=== PATIENT | female | born 1955 | race Caucasian/White ===

== ENCOUNTER 2019-12-21 11:58 | Observation (INO) | payer OTHER ==
[2019-12-17 11:28] LABS: HEMATOCRIT 31.8 % (36.0-47.0); HEMOGLOBIN 10.7 g/dL (12.0-15.5); MEAN CORPUSCULAR HEMOGLOBIN 25.9 pg (27.0-33.4); MEAN CORPUSCULAR HGB CONC 33.8 g/dL (32.0-36.0); MEAN CORPUSCULAR VOLUME 77 fl (80-97); PLATELET COUNT 426 10^3/uL (150-450); RED BLOOD COUNT 4.13 10^6/uL (3.72-5.28); RED CELL DISTRIBUTION WIDTH 18.3 % (11.5-14.0); WHITE BLOOD COUNT 6.7 10^3/uL (4.0-10.5)
[2019-12-17 11:40] LABS: APPEARANCE,URINE CLEAR; BILIRUBIN,URINE NEGATIVE (NEGATIVE); COLOR,URINE YELLOW; GLUCOSE, URINE NEGATIVE (NEGATIVE); KETONES,URINE NEGATIVE (NEGATIVE); LEUKOCYTE ESTERASE,URINE NEGATIVE (NEGATIVE); NITRITE,URINE NEGATIVE (NEGATIVE); PROTEIN,URINE NEGATIVE (NEGATIVE); URINE SPECIFIC GRAVITY 1.006; UROBILINOGEN,URINE NEGATIVE mg/dL (<2.0)
[2019-12-17 11:53] LABS: ADD MANUAL MICROSCOPIC YES; RBC,URINE 0-1 /HPF; WBC,URINE NONE SEEN /HPF
[2019-12-17 12:08] LABS: ANION GAP 10 (5-19); BLOOD UREA NITROGEN 6 mg/dL (7-20); CALCIUM 9.9 mg/dL (8.4-10.2); CARBON DIOXIDE 25 mmol/L (22-30); CHLORIDE 98 mmol/L (98-107); GLUCOSE 98 mg/dL (75-110); POTASSIUM 4.8 mmol/L (3.6-5.0)
--- NOTE | 2019-12-17 12:37 | RADIOLOGY REPORT (SQ) ---
EXAM DESCRIPTION: CHEST PA/LATERAL IMAGES COMPLETED DATE/TIME: 12/17/2019 12:07 pm REASON FOR STUDY: PRE-OP COMPARISON: None. EXAM PARAMETERS: NUMBER OF VIEWS: two views TECHNIQUE: Digital Frontal and Lateral radiographic views of the chest acquired. RADIATION DOSE: NA LIMITATIONS: none FINDINGS: LUNGS AND PLEURA: No infiltrate, effusion, or mass. There appears to be limited atelectas is at the left heart border. MEDIASTINUM AND HILAR STRUCTURES: No masses or contour abnormalities. HEART AND VASCULAR STRUCTURES: Heart normal size. No evidence for failure. BONES: No acute findings. HARDWARE: None in the chest. OTHER: No other significant finding. IMPRESSION: Limited atelectasis. No acute cardiopulmonary finding. TECHNICAL DOCUMENTATION: JOB ID: [id number] 2010 [employer]- All Rights Reserved Reading location - IP/workstation name: [email or web address]
--- NOTE | 2019-12-18 11:18 | EKG REPORT ---
SEVERITY:- NORMAL ECG - SINUS RHYTHM : Confirmed by: Natasha Kohler MD 18-Dec-2019 11:17:33
[~2019-12-21 11:58] MED LIST: CEFAZOLIN 2 GM/D5W RTU 2 GM/50 ML RTUPB IV PRN; FENTANYL CITRATE INJ/PF 100 MCG/2 ML AMPUL ONE; MIDAZOLAM 2 MG/2 ML INJ ONE; ONDANSETRON HCL INJ/PF 4 MG/2 ML SDV ONE; PROPOFOL INJ 200 MG/20 ML VIAL IV ONE; ROPIVACAINE HCL 0.5% INJ/PF (5 MG/1 ML) 30 ML SDV ONE; SUCCINYLCHOLINE CHLORIDE INJ 200 MG/10 ML VIAL ONE
[2019-12-21] MEDS ORDERED: CEFAZOLIN 2 GM/D5W RTU 2 GM/50 ML RTUPB IV ONE (12:06)
[2019-12-21] MEDS ORDERED: FENTANYL CITRATE INJ/PF 100 MCG/2 ML AMPUL ONE (14:02)
[2019-12-21] MEDS ORDERED: MIDAZOLAM 2 MG/2 ML INJ ONE (14:02)
--- NOTE | 2019-12-21 16:21 | Operative Report ---
Operative Report DATE OF SURGERY: 12/21/19 PREOPERATIVE DIAGNOSIS: Left posttraumatic ankle arthrosis OPERATION: Left ankle arthrodesis SURGEON: SLOANE DAVIS ANESTHESIA: GA TISSUE REMOVED OR ALTERED: Resected bone used as bone graft ESTIMATED BLOOD LOSS: 100 PROCEDURE: With with the patient supine on the operative table the left lower extremities prepped and draped in a sterile fashion. The limb is elevated for exsanguination tourniquet applied 250 torr. A longitudinal incision is made over the anterior aspect of the ankle in line with the anterior tibial tendon sheath. Upon transitioning through the dermis a fair amount of bleeding is encountered. The tourniquet is deflated and the bleeding is significantly abated. The dissection continues through the anterior tibial tendon sheath to avoid the neurovascular bundle and onto the anterior surface of the tibia and the dorsal surface of the talus. These were posed and osteophytes removed. The articular surface of the talus resected using oscillating saw. The articular surface of the tibia is resected using an oscillating saw. The joint is reapproximated and a pin through the plantar surface the foot up into the tibia is used to hold the reduction with neutral varus valgus of the hindfoot and neutral plantar dorsiflexion. Next an Arthrex plate is applied to the anterior surfaces of the tibia and the dorsal surface of the talus. 4 screws were anchored into the talus. Sected bone is morselized and placed into the tibiotalar joint. A compression screw was now used to an oblong hole in the p late to close down the joint space. This occurs very nicely. The remaining holes on the anterior surface of the tibia were then filled with the appropriate screws. The wound is irrigated with bulb lavage and closed using rapid Vicryl followed by nylon. A sterile compressive dressing and posterior plaster splint were applied and the patient was returned to PACU in satisfactory condition.
[2019-12-21] MEDS ORDERED: PROMETHAZINE HCL INJ 25 MG/1 ML VIAL IV PRN ×2 (16:32)
[2019-12-21] MEDS ORDERED: FENTANYL CITRATE INJ/PF 100 MCG/2 ML AMPUL IV PRN ×3 (16:32)
[2019-12-21] MEDS ORDERED: DIPHENHYDRAMINE HCL 50 MG/ML VIAL IV PRN (16:32)
[2019-12-21] MEDS ORDERED: MEPERIDINE HCL/PF INJ 25 MG/1 ML DISP.SYRIN IV PRN (16:32)
[2019-12-21] MEDS ORDERED: RINGERS SOLUTION,LACTATED 1,000 ML IV PRN (16:33)
[2019-12-21] MEDS ORDERED: ACETAMINOPHEN 325 MG TABLET PO PRN (16:37)
[2019-12-21] MEDS ORDERED: ONDANSETRON 4 MG TAB.RAPDIS PO PRN (16:38)
[2019-12-21] MEDS ORDERED: KETOROLAC TROMETHAMINE INJ/PF 30 MG/1 ML SDV ONE (17:06)
[2019-12-21] MEDS ORDERED: MORPHINE SULFATE 10 MG/ML INJ ONE (17:13)
[2019-12-21] MEDS: MORPHINE SULFATE 10 MG/ML INJ IV PRN ×2 (17:15→17:20)
[2019-12-21] MEDS ORDERED: EPHEDRINE SULFATE INJ 50 MG/1 ML AMPULE ONE (18:18)
--- NOTE | 2019-12-21 18:50 | RADIOLOGY REPORT (SQ) ---
EXAM DESCRIPTION: NO CHG FLUORO; ANKLE LEFT AP/LATERAL IMAGES COMPLETED DATE/TIME: 12/21/2019 6:19 pm REASON FOR STUDY: ORIF LT ANKLE COMPARISON: None. FLUOROSCOPY TIME: 0.4 minutes 2 Images saved to PACS LIMITATIONS: None. PROCEDURE: ORIF left ankle. FINDINGS: Images from fluoro document the procedure. IMPRESSION: ORIF left ankle. Refer to operative note for further information. COMMENT: PQRS 6045F: Fluoroscopy time of the procedure is documented in the report. TECHNICAL DOCUMENTATION: JOB ID: [id number] 2010 [employer]- All Rights Reserved Reading location - IP/workstation name: [email or web address]
--- NOTE | 2019-12-21 18:50 | RADIOLOGY REPORT (SQ) ---
EXAM DESCRIPTION: NO CHG FLUORO; ANKLE LEFT AP/LATERAL IMAGES COMPLETED DATE/TIME: 12/21/2019 6:19 pm REASON FOR STUDY: ORIF LT ANKLE COMPARISON: None. FLUOROSCOPY TIME: 0.4 minutes 2 Images saved to PACS LIMITATIONS: None. PROCEDURE: ORIF left ankle. FINDINGS: Images from fluoro document the procedure. IMPRESSION: ORIF left ankle. Refer to operative note for further information. COMMENT: PQRS 6045F: Fluoroscopy time of the procedure is documented in the report. TECHNICAL DOCUMENTATION: JOB ID: [id number] 2010 [employer]- All Rights Reserved Reading location - IP/workstation name: [email or web address]
[2019-12-21] MEDS: CEFAZOLIN SODIUM 2 GM in DEXTROSE 5%-WATER 100 ML IV SCH (21:58)
[2019-12-22] MEDS: IBUPROFEN 800 MG in NORMAL SALINE 250 ML IV SCH ×2 (00:33→06:37)
[2019-12-22] MEDS: OXYCODONE HCL IR 5 MG TABLET PO PRN ×2 (01:43→08:13)
[2019-12-22] MEDS: CEFAZOLIN SODIUM 2 GM in DEXTROSE 5%-WATER 100 ML IV SCH (05:02)
[2019-12-22] MEDS ORDERED: RINGERS SOLUTION,LACTATED 500 ML IV PRN (05:55)
--- NOTE | 2019-12-22 06:31 | Discharge Summary ---
Discharge Summary (SDC) - Discharge Final Diagnosis: Posttraumatic arthrosis left ankle Date of Surgery: 12/21/19 Discharge Date: 12/22/19 Condition: Good Treatment or Instructions: Touchdown weightbearing restriction left lower extremity Referrals: SLOANE DAVIS MD [ACTIVE STAFF] - 01/05/20 9:30 am Discharge Diet: Regular Respiratory Treatments at Home: Deep Breathing/Coughing Discharge Activity: Balance Activity w/Rest, No tub bath Home Care Assistance: None Needed Report the Following to Your Physician Immediately: Shortness of Breath, Fever over 101 Degrees, Drainage-Foul Smelling
[2019-12-22] MEDS ORDERED: ASPIRIN 81 MG TABLET, ENT COATED PO SCH (10:00)
[2019-12-22 11:07] VITALS: BP 115/57
== END 2019-12-22 11:42 | disposition home or self-care (01) ==
LOC: OROUT 11:58 → 4W 17:53 → INOR 18:17 → OROUT 12-22 11:42 → 4W 12-22 11:42
PROVIDERS: ADMIT Orthopaedic Surgery; ATTEND Orthopaedic Surgery
DX: M19.172 Post-traumatic osteoarthritis, left ankle and foot (principal); I10 Essential (primary) hypertension; K21.9 Gastro-esophageal reflux disease without esophagitis; E66.3 Overweight; K44.9 Diaphragmatic hernia without obstruction or gangrene; Z03.818 Encounter for observation for suspected exposure to other biological agents ruled out; Z79.899 Other long term (current) drug therapy; Z79.1 Long term (current) use of non-steroidal anti-inflammatories (NSAID); Z98.1 Arthrodesis status
CPT/HCPCS: 27870; 93005; 36415; 85027; 87635; 80048; 81001; 73600; 71046; 93010; 97110; 97116; 97162; 01480; G0378 ×2; C1713 ×6; J2795; J2250; J0690 ×3; J3490; J3010; J1885; J2270; J0330; J2405; J7060 ×2; J7050 ×2; J7120; J2704; J1741 ×2; C9803

== ENCOUNTER 2020-04-03 11:50 | Emergency (ER) | payer OTHER ==
[2020-04-03 12:55] LABS: APPEARANCE,URINE CLEAR; BILIRUBIN,URINE NEGATIVE (NEGATIVE); COLOR,URINE AMBER; GLUCOSE, URINE NEGATIVE (NEGATIVE); KETONES,URINE NEGATIVE (NEGATIVE); LEUKOCYTE ESTERASE,URINE NEGATIVE (NEGATIVE); NITRITE,URINE POSITIVE (NEGATIVE); PROTEIN,URINE NEGATIVE (NEGATIVE); URINE SPECIFIC GRAVITY 1.005
--- NOTE | 2020-04-03 13:00 | ER Document Report ---
ED General - General Chief Complaint: Urinary Problem Stated Complaint: PAINFUL URINATION,ABDOMINAL PAIN Time Seen by Provider: 04/03/20 12:28 Primary Care Provider: ALIRIO CARABALLO MD [Primary Care Provider] - Follow up in 3-5 days Notes: Patient is a 65-year-old female presents emergency department with a chief c omplaint of dysuria and bladder fullness. Patient states that about a month ago, she was diagnosed with a urinary tract infection was started on ciprofloxacin. States that she took all her medications as prescribed. Went back to her primary care provider and ended up having a second course of cip rofloxacin, which she states is still did not help her. She did take abtn-aao-crmyxzs Pyridium to help with her symptoms. Patient also states that she has had a cough and congestion over the past 5 days. Patient states that she used to smoke a lot, but continues to smoke just a little bit. Patient states that she has felt "wheezy." - Related Data Allergies/Adverse Reactions: codeine Allergy (Unknown, Verified 04/03/20 12:29) Hives iv dye Allergy (Uncoded 12/21/19 08:08) Home Medications: Lisinopril-HCTZ 20-12.5, Celebrex 200, Nexium 40, Paxil 40, Trazadone PRN Past Medical History - General Information source: Patient - Social History Smoking Status: Current Some Day Smoker Frequency of alcohol use: Occasional Drug Abuse: None Family History: Reviewed & Not Pertinent - Past Medical History Cardiac Medical History: Reports: Hx Hypercholesterolemia, Hx Hypertension Denies: Hx Coronary Artery Disease, Hx Heart Attack Pulmonary Medical History: Denies: Hx Asthma, Hx Bronchitis, Hx COPD, Hx Pneumonia Neurological Medical History: Denies: Hx Cerebrovascular Accident, Hx Seizures GI Medical History: Reports: Hx Gastroesophageal Reflux Disease, Hx Hiatal Hernia Musculoskeletal Medical History: Reports Hx Arthritis Psychiatric Medical History: Reports: Hx Depression Past Surgical History: Reports: Hx Breast Surgery - reduction, Hx Hysterectomy, Hx Orthopedic Surgery - left ankle/back - Immunizations Hx Diphtheria, Pertussis, Tetanus Vaccination: No Review of Systems - Review of Systems Notes: REVIEW OF SYSTEMS: CONSTITUTIONAL : Denies recent illness. Denies recent unintentional weight loss. Denies fever, chills, or sweats. EENT: Denies eye, ear, throat, or mouth pain, discharge, or symptoms. Denies nasal or sinus congestion. CARDIOVASCULAR: Denies chest pain. RESPIRATORY: See HPI. GASTROINTESTINAL: Denies nausea, vomiting, and diarrhea. Denies abdominal pain. Denies constipation. GENITOURINARY: See HPI. MUSCULOSKELETAL: Denies neck and back pain. Denies joint pain or swelling. SKIN: Denies rash, itchiness, or lesions HEMATOLOGIC : Denies easy bruising or bleeding. LYMPHATIC: Denies swollen, painful, enlarged glands. NEUROLOGICAL: Denies no numbness or tingling denies weakness. Denies headache. Denies altered mental status. Denies alteration in speech. PSYCHIATRIC: Denies stress, anxiety, alteration in sleep patterns, or depression. All other systems reviewed and negative. Physical Exam - Vital signs Vitals: Temp Pulse Resp BP Pulse Ox 98.2 F 86 16 189/111 H 97 04/03/20 12:05 04/03/20 12:05 04/03/20 12:05 04/03/20 12:05 04/03/20 12:05 - Notes Notes: PHYSICAL EXAMINATION: GENERAL: Appears well, healthy, well-nourished, no acute distress. HEAD: Normocephalic, atraumatic. EYES: PERRL, conjunctiva normal, all extraocular movements intact, sclera nonicteric ENT: Moist mucous membranes. NECK: Supple, no noticeable swelling, redness, rash. Normal range of motion. LUNGS: Equal breath sounds bilaterally and clear to auscultation. No wheezes rales or rhonchi. CARDIOVASCULAR: S1-S2, regular rate, regular rhythm. Radial pulses 2+, normal. ABDOMEN: Normoactive bowel sounds. Soft, slightly tender mid lower abdomen, no guarding, no rebound tenderness, and no masses palpated. EXTREMITIES: Normal strength and range of motion, no pitting or edema. No cyanosis. NEUROLOGICAL: Moves all extremities upon command. Strength 5/5 in all extremities. PSYCH: Normal mood, normal affect. SKIN: Warm, dry. No rash, lesions, ulcerations noted. Normal skin turgor. BACK: Bilateral flank pain. Course - Re-evaluation Re-evalutation: 04/03/20 16:24 Hematology shows a leukocytosis of 12,700 with a left shift with 74.6% neutrophils. Hemoglobin is 10.1. This is the patient's normal. Chemistries show a sodium of 123.8. I discussed this with the patient and was concerned that her sodium was low and recommended that the patient be admitted. She stated that she did not want to be admitted. She states that she normally has a sodium of 127-1 29. I advised her to make sure that follows up with her primary care provider to have her electrolytes rechecked. Advised her to add electrolytes into her water, as she states that she drinks plenty of water. Chest x-ray is unremarkable. The patient was evaluated during the global COVID- 19 pandemic and that diagnosis was suspected/considered upon their initial presentation. Their evaluation, treatment and testing was consistent with current guidelines for patients who present with complaints or symptoms that may be related to COVID-19. We will send the patient home with an inhaler. She is in agreement with this plan. Follow-up precautions were given. Verbal discharge instructions were given to the patient. They verbalized understanding. They are stable for discharge. - Vital Signs Vital signs: Temp Pulse Resp BP Pulse Ox 97.6 F 72 16 150/79 H 99 04/03/20 16:31 04/03/20 16:31 04/03/20 16:31 04/03/20 16:31 04/03/20 16:31 - Laboratory Results Result Diagrams: 04/03/20 13:33 04/03/20 13:33 Laboratory Results Interpreted: 04/03/20 04/03/20 04/03/20 12:30 13:33 13:33 WBC 12.7 H Hgb 10.1 L Hct 30.0 L MCV 73 L MCH 24.8 L RDW 17.2 H Plt Count 547 H Lymph % (Auto) 10.5 L Eos % (Auto) 10.7 H Absolute Neuts (auto) 9.5 H Absolute Eos (auto) 1.4 H Sodium 123.8 L Chloride 91 L Calcium 10.3 H Urine Nitrite POSITIVE H Urine Urobilinogen 4.0 H Critical Laboratory Results Reviewed: No Critical Results - Radiology Results Critical Radiology Results Reviewed: No Critical Results Discharge - Discharge Clinical Impression: Shortness of breath Urinary tract infection Qualifiers: Urinary tract infection type: acute pyelonephritis Qualified Code(s): N10 - Acute pyelonephritis Condition: Stable Disposition: HOME, SELF-CARE Instructions: Urinary Tract Infection ([facility]) Additional Instructions: Your urine shows findings consistent with a urinary tract infection. Please take all the antibiotics as directed even if your symptoms have improved. Please follow-up with your primary care physician as needed. Return to emergency room if you develop fever >101F, persistent vomiting, become lethargic, have severe pain in your sides, or any other symptoms that are concerning to you. You are also being sent home with an albuterol inhaler. Use this as prescribed. Your sodium was low. If your Covid test is negative, follow-up with your primary care provider in the next 3 to 5 days, have them recheck your sodium. If you are positive for COVID-19, follow-up after quarantine. As a person under investigation for COVID-19, the [place] Department of Health and Human Services (division on public health) advises you to adhere to the following guidance until your test results are reported to you. If your test result is positive, you will receive additional information from your provider and your local health department at that time. Remain at home until you are cleared by the health provider or public health authorities. Keep a log of visitors to your home, notify any visitors to your home of your isolation status. If you plan to move to a new address or leave the [facility], notify the local health department in your [facility]. Call your Doctor or seek care if you have an urgent medical need. Before seeking medical care, call him to get instructions from the provider before arriving at the medical office, clinic, or hospital. Notify them that you are being tested for the virus (COVID-19) so that arrangements can be made, as necessary, to prevent transmission to others in the healthcare setting. Next, notify the local health department in your [facility]. Prescriptions: Albuterol Sulfate [Proair HFA Inhalation Aerosol 8.5 gm MDI] 2 puff IH Q4H PRN #1 mdi PRN Reason: Inhaler, Assist Devices [Space Chamber] 1 each MC ASDIR PRN #1 spacer PRN Reason: Doxycycline Hyclate [Vibramycin 100 mg Tablet] 100 mg PO BID #14 tablet Ondansetron [Zofran Odt 4 mg Tablet] 1 - 2 tab PO Q4H PRN #15 tab.rapdis PRN Reason: For Nausea/Vomiting Referrals: ALIRIO CARABALLO MD [Primary Care Provider] - Follow up in 3-5 days
[2020-04-03] MEDS ORDERED: CEFTRIAXONE 1 GM/D5W RTU 1 GM/50 ML RTUPB IV ONE (13:18)
[2020-04-03] MEDS ORDERED: NORMAL SALINE 1000 ML 1,000 ML IV ONE (13:18)
[2020-04-03] MEDS ORDERED: IPRATROPIUM/ALBUTEROL 0.5-2.5 MG/3 ML AMPUL NEB ONE (13:21)
--- NOTE | 2020-04-03 13:21 | RADIOLOGY REPORT (SQ) ---
EXAM DESCRIPTION: CHEST SINGLE VIEW IMAGES COMPLETED DATE/TIME: 04/03/2020 1:12 pm REASON FOR STUDY: cough x5 days COMPARISON: Chest radiographs 12/17/2019 EXAM PARAMETERS: NUMBER OF VIEWS: One view. TECHNIQUE: Single frontal radiographic view of the chest acquired. RADIATION DOSE: NA LIMITATIONS: None. FINDINGS: LUNGS AND PLEURA: No opacities, masses or pneumothorax. No pleural effusion. MEDIASTINUM AND HILAR STRUCTURES: No masses. Contour normal. HEART AND VASCULAR STRUCTURES: Heart normal in size. Normal vasculature. BONES: No acute findings. HARDWARE: None in the chest. OTHER: No other significant finding. IMPRESSION: No acute pulmonary findings. TECHNICAL DOCUMENTATION: JOB ID: [id number] 2010 [employer]- All Rights Reserved Reading location - IP/workstation name: [email or web address]
[2020-04-03 13:51] LABS: ABSOLUTE EOSINOPHILS # (AUTO) 1.4 10^3/uL (0.0-0.6); ABSOLUTE LYMPHOCYTES (AUTO) 1.3 10^3/uL (0.5-4.7); ABSOLUTE MONOCYTES (AUTO) 0.5 10^3/uL (0.1-1.4); ABSOLUTE NEUT (AUTO) 9.5 10^3/uL (1.7-8.2); BASOPHILS % (AUTO) 0.2 % (0-2); EOSINOPHILS % (AUTO) 10.7 % (0-6); HEMOGLOBIN 10.1 g/dL (12.0-15.5); LYMPHOCYTES % (AUTO) 10.5 % (13-45); MEAN CORPUSCULAR HEMOGLOBIN 24.8 pg (27.0-33.4); MEAN CORPUSCULAR HGB CONC 33.7 g/dL (32.0-36.0); MEAN CORPUSCULAR VOLUME 73 fl (80-97); PLATELET COUNT 547 10^3/uL (150-450); RED BLOOD COUNT 4.09 10^6/uL (3.72-5.28); RED CELL DISTRIBUTION WIDTH 17.2 % (11.5-14.0); SEGMENTED NEUTROPHILS % (AUTO) 74.6 % (42-78); TOTAL CELLS COUNTED % (AUTO) 100 %; WHITE BLOOD COUNT 12.7 10^3/uL (4.0-10.5)
[2020-04-03 14:11] LABS: ALBUMIN 4.4 g/dL (3.5-5.0); ALKALINE PHOSPHATASE 62 U/L (38-126); ANION GAP 9 (5-19); ASPARTATE AMINO TRANSFERASE 21 U/L (14-36); BILIRUBIN,TOTAL 0.5 mg/dL (0.2-1.3); BLOOD UREA NITROGEN 8 mg/dL (7-20); CALCIUM 10.3 mg/dL (8.4-10.2); CARBON DIOXIDE 24 mmol/L (22-30); CHLORIDE 91 mmol/L (98-107); GLUCOSE 95 mg/dL (75-110); POTASSIUM 3.8 mmol/L (3.6-5.0); TOTAL PROTEIN 7.3 g/dL (6.3-8.2)
[2020-04-03 16:38] VITALS: BP 150/79
== END 2020-04-03 16:45 | disposition home or self-care (01) ==
LOC: ER 11:50
DX: N10 Acute pyelonephritis (principal); R06.02 Shortness of breath; F17.200 Nicotine dependence, unspecified, uncomplicated; Z20.828 Contact with and (suspected) exposure to other viral communicable diseases; Z88.6 Allergy status to analgesic agent
CPT/HCPCS: 94640; 99284; 96361; 96365; 36415; 87086; 85025; 87635; 80053; 81001; 71045; J7030; J0696; C9803

== ENCOUNTER 2020-05-17 09:52 | Day surgery (SDC) | payer OTHER ==
[~2020-05-17 09:52] MED LIST changes: -CEFAZOLIN 2 GM/D5W RTU 2 GM/50 ML RTUPB IV PRN; -FENTANYL CITRATE INJ/PF 100 MCG/2 ML AMPUL ONE; +LIDOCAINE 2% INJ-PF (20 MG/ML) 10 ML AMPUL ONE; -MIDAZOLAM 2 MG/2 ML INJ ONE; -ONDANSETRON HCL INJ/PF 4 MG/2 ML SDV ONE; -ROPIVACAINE HCL 0.5% INJ/PF (5 MG/1 ML) 30 ML SDV ONE; -SUCCINYLCHOLINE CHLORIDE INJ 200 MG/10 ML VIAL ONE
[2020-05-17 12:25] VITALS: BP 136/78
--- NOTE | 2020-05-17 14:01 | Operative Report ---
Operative Report DATE OF SURGERY: 05/17/20 Operative Report: The risks, benefits and alternatives are discussed with the patient in detail patient is taken to the OR, propofol sedation is provided colonoscopy is completed to the cecum prep is good retroflexion is performed EGD is then performed and then completed the esophagus, stomach and duodenum is examined PREOPERATIVE DIAGNOSIS: colorectal cancer screnning. family history of colon cancer. GERD POSTOPERATIVE DIAGNOSIS: gastritis , biopsy obtained. diverticulosis. internal hemorrhoids. right colon inflammation noted and biopsies obtained OPERATION: Colonoscopy with biopsy. EGD with biopsy SURGEON: NINO MILLIGAN ANESTHESIA: LMAC TISSUE REMOVED OR ALTERED: as noted above COMPLICATIONS: none ESTIMATED BLOOD LOSS: none INTRAOPERATIVE FINDINGS: as noted above PROCEDURE: patient tolerated her procedure well no post procedure complications patient is discharged in good condition Discharge Date : 05/17/2020 Discharge diet : regular Discharge activity is normal follow up on biopsies patient is instructed to call the office ot go to ED if needed 2-3 week follow up
== END 2020-05-17 12:39 | disposition home or self-care (01) ==
LOC: OROUT 09:52
PROVIDERS: ATTEND Internal Medicine Gastroenterology
DX: D12.2 Benign neoplasm of ascending colon (principal); K29.50 Unspecified chronic gastritis without bleeding; K21.9 Gastro-esophageal reflux disease without esophagitis; I10 Essential (primary) hypertension; F32.9 Major depressive disorder, single episode, unspecified; Z80.0 Family history of malignant neoplasm of digestive organs; Z87.19 Personal history of other diseases of the digestive system; Z86.010 Personal history of colon polyps; Z20.822 Contact with and (suspected) exposure to COVID-19; Z79.899 Other long term (current) drug therapy; E87.6 Hypokalemia; K57.90 Diverticulosis of intestine, part unspecified, without perforation or abscess without bleeding; M19.90 Unspecified osteoarthritis, unspecified site; F17.210 Nicotine dependence, cigarettes, uncomplicated
CPT/HCPCS: 43239; 45380; 88305 ×2; J2704; J3490; 813